=== PATIENT | female | born 1965 | race Caucasian/White ===

== ENCOUNTER 2018-07-08 15:57 | Inpatient (IN) | payer BC ==
[2018-07-08] MEDS ORDERED: Ondansetron 4 MG/2 ML SDV ONE (16:11)
[2018-07-08] MEDS ORDERED: Sodium Chloride 0.9% 1,000 ML IV SCH ×2 (16:40→18:00)
[2018-07-08 16:56] LABS: CHLORIDE,CL 109 mmol/L (98-107); SODIUM,NA 144 mmol/L (136-145)
[2018-07-08] MEDS ORDERED: Ondansetron 4 MG/2 ML SDV IVPUSH ONE (17:00)
[2018-07-08] MEDS ORDERED: Potassium Chloride 20 MEQ Tab.ER PO ONE (18:01)
--- NOTE | 2018-07-08 19:19 | EDM.PDOC ---
ED HPI GENERAL MEDICAL PROBLEM - General Chief Complaint: Abdominal Pain Stated Complaint: nausea & vomiting Time Seen by Provider: 07/08/18 16:00 Source of Information: Reports: Patient History Limitations: Reports: No Limitations - History of Present Illness INITIAL COMMENTS - FREE TEXT/NARRATIVE: Patient is a 53-year-old female who presented to the emergency room not feeling well for the last week patient felt she had nausea vomiting diarrhea about 5 times a day felt dehydrated not eating well nausea and vomiting Onset: Gradual Duration: Day(s): (5), Getting Worse Location: Reports: Abdomen Quality: Reports: Burning (On voiding) Severity: Moderate Improves with: Reports: None Worsens with: Reports: None Context: Reports: Other (Sick) Associated Symptoms: Reports: Fever/Chills, Nausea/Vomiting Lower Back Pain Score (Numeric/FACES): 9 - Related Data Allergies Allergy/AdvReac Type Severity Reaction Status Date / Time No Known Allergies Allergy Verified 08/10/13 12:48 Home Meds: Home Meds Cyanocobalamin (Vitamin B-12) [Vitamin B-12] 1,000 mcg IM Q30D 08/31/13 [History ] Etanercept [Enbrel] 50 mg SQ Q7D 08/31/13 [History] Levothyroxine Sodium [Synthroid] 200 mcg PO ACBRK 08/31/13 [History] Meloxicam [Mobic] 7.5 mg PO BID 08/31/13 [History] traMADol [Ultram] 50 mg PO ONETIME PRN 08/31/13 [History] traMADol [Ultram] 50 mg PO TID 08/31/13 [History] Gabapentin [Neurontin] 300 mg PO DAILY 07/08/18 [History] Gabapentin [Neurontin] 600 mg PO BEDTIME 07/08/18 [History] Methotrexate 1 dose SQ Q7D 07/08/18 [History] Oxybutynin Chloride [Ditropan Xl] 10 mg PO TID 07/08/18 [History] Past Medical History Genitourinary History: Reports: Other (See Below) Other Genitourinary History: overactive bladder Musculoskeletal History: Reports: RA Endocrine/Metabolic History: Reports: Hypothyroidism - Past Surgical History GI Surgical History: Reports: Bariatric Procedure Social & Family History - Tobacco Use Smoking Status *Q: Unknown Ever Smoked ED ROS GENERAL - Review of Systems Review Of Systems: See Below Constitutional: Reports: Weakness, Fatigue, Weight Loss HEENT: Reports: No Symptoms, Other (Throat dry) Respiratory: Reports: No Symptoms Cardiovascular: Reports: No Symptoms Endocrine: Reports: No Symptoms GI/Abdominal: Reports: Diarrhea, Decreased Appetite, Nausea : Reports: Dysuria, Frequency, Hematuria Musculoskeletal: Reports: No Symptoms Skin: Reports: Dryness Neurological: Reports: No Symptoms Psychiatric: Reports: No Symptoms Hematologic/Lymphatic: Reports: No Symptoms Immunologic: Reports: No Symptoms ED EXAM, GENERAL - Physical Exam Exam: See Below Exam Limited By: No Limitations General Appearance: Alert, WD/WN, No Apparent Distress Ears: Normal External Exam, Normal Canal, Hearing Grossly Normal, Normal TMs Nose: Normal Inspection Throat/Mouth: Normal Inspection, Normal Lips, Normal Teeth, Normal Gums, Normal Oropharynx, Normal Voice, No Airway Compromise Head: Atraumatic, Normocephalic Neck: Normal Inspection Respiratory/Chest: No Respiratory Distress Cardiovascular: Normal Peripheral Pulses, Regular Rate, Rhythm, No Edema, No Gallop, No JVD, No Murmur, No Rub GI/Abdominal: Tender, Abnormal Bowel Sounds (Attractive) (Female) Exam: Deferred Back Exam: Decreased Range of Motion Extremities: Limited Range of Motion, Other (History of rheumatoid arthritis) Neurological: Alert, Oriented, CN II-XII Intact, Normal Cognition, Normal Gait, Normal Reflexes, No Motor/Sensory Deficits Psychiatric: Normal Affect, Normal Mood Course - Vital Signs Last Recorded V/S: Last Vital Signs Temp 98.5 F 07/09/18 08:00 Pulse 75 07/09/18 08:00 Resp 16 07/09/18 08:00 BP 104/54 L 07/09/18 08:00 Pulse Ox 98 07/09/18 08:00 - Orders/Labs/Meds Orders: Medication Orders Cyanocobalamin (Vitamin B12) 1,000 mcg IM Q30D [facility] Last Admin: 07/08/18 20:26 Dose: 1,000 mcg Diphenoxylate HCl/Atropine (Lomotil 0.025-2.5 Mg) 1 tab PO BID PRN PRN Reason: Diarrhea Enoxaparin Sodium (Lovenox) 30 mg SUBCUT DAILY [facility] Last Admin: 07/09/18 07:46 Dose: 30 mg Furosemide (Lasix) 40 mg IV NOW ONE Stop: 07/09/18 09:02 Gabapentin (Neurontin) 300 mg PO DAILY [facility] Last Admin: 07/09/18 07:45 Dose: 300 mg Gabapentin (Neurontin) 600 mg PO BEDTIME [facility] Last Admin: 07/08/18 20:21 Dose: 600 mg Piperacillin Sod/Tazobactam (Sod 3.375 gm/ Sodium Chloride) 100 mls @ 200 mls/ hr IV Q6H [facility] Last Admin: 07/09/18 07:42 Dose: 200 mls/hr Admin: 07/09/18 01:23 Dose: 200 mls/hr Admin: 07/08/18 20:16 Dose: 200 mls/hr Potassium Chloride/Dextrose/Sod Cl (D5 1/2 Ns W/ 40 Meq/L Kcl) 1,000 mls @ 100 mls/hr IV ASDIRECTED [facility] Sodium Chloride (Normal Saline) 250 mls @ 100 mls/hr IV ASDIRECTED [facility] Meloxicam (Mobic) 7.5 mg PO BID [facility] Levothyroxine Sodium (200 Mcg) 200 mcg PO ACBRK [facility] Non-Formulary Medication (Oxybutynin Chloride [Ditropan Xl]) 10 mg PO TID [facility] Ondansetron HCl (Zofran) 4 mg IVPUSH Q4H PRN PRN Reason: Nausea Pharmacy Consult (Consult To Pharmacy) 1 each .XX ASDIRECTED [facility] Pharmacy Consult (Consult To Pharmacy) 1 each .XX ASDIRECTED [facility] Sodium Chloride (Saline Flush) 10 ml FLUSH ASDIRECTED PRN PRN Reason: Keep Vein Open Last Admin: 07/08/18 20:15 Dose: 10 ml Temazepam (Restoril) 15 mg PO BEDTIME PRN PRN Reason: Insomnia Tramadol HCl (Ultram) 50 mg PO TID [facility] Last Admin: 07/09/18 07:45 Dose: 50 mg Tramadol HCl (Ultram) 50 mg PO ONETIME PRN PRN Reason: Pain Last Admin: 07/08/18 20:14 Dose: 50 mg Labs: Laboratory Tests 07/08/18 07/08/18 07/08/18 Range/Units 16:30 16:30 18:30 WBC 19.4 H (4.0-10.2) K/uL RBC 3.65 L (3.77-5.09) M/uL Hgb 8.9 L (11.7-15.5) g/dL Hct 28.2 L (34.0-46.0) % MCV 77.3 L D (84.0-98.0) fL MCH 24.4 L (28.2-33.3) pg MCHC 31.6 L (31.7-36.0) g/dL RDW 17.5 H (11.2-14.1) % Plt Count 416 H D (150-350) K/uL Neut % (Auto) 81.9 H (45.0-80.0) % Lymph % (Auto) 9.0 L (10.0-50.0) % [place] % (Auto) 8.5 (2.0-14.0) % Eos % (Auto) 0.5 (0.0-5.0) % Baso % (Auto) 0.1 (0.0-2.0) % Neut # (Auto) 15.91 H (1.40-7.00) K/uL Lymph # (Auto) 1.74 (0.50-3.50) K/uL [place] # (Auto) 1.66 H (0.00-1.00) K/uL Eos # (Auto) 0.10 (0.00-0.50) K/uL Baso # (Auto) 0.02 (0.00-0.20) K/uL Sodium 144 (136-145) mmol/L Potassium 2.8 L* (3.5-5.1) mmol/L Chloride 109 H (98-107) mmol/L Carbon Dioxide 20.2 L (21.0-32.0) mmol/L BUN 32 H (7-18) mg/dL Creatinine 0.88 (0.51-1.17) mg/dL Est Cr Clr Drug Dosing TNP Estimated GFR (MDRD) > 60 mL/min Glucose 186 H (74-106) mg/dL Calcium 8.4 L (8.5-10.1) mg/dL Total Bilirubin 0.5 (0.2-1.0) mg/dL AST 364 H (15-37) U/L ALT 266 H (12-78) U/L Alkaline Phosphatase 283 H (46-116) IU/L Total Protein 7.3 (6.4-8.2) g/dL Albumin 2.0 L (3.4-5.0) g/dL Specimen Type Urinvoid Urine Color Dark yellow Urine Appearance Cloudy Urine pH 6.0 (5.0-9.0) Ur Specific [place] 1.020 (1.005-1.030) Urine Protein 100 H (NEGATIVE) mg/dL Urine Glucose (UA) Negative (NEGATIVE) mg/dL Urine Ketones Negative (NEGATIVE) mg/dL Urine Occult Blood Large H (NEGATIVE) Urine Nitrite Negative (NEGATIVE) Urine Bilirubin Negative (NEGATIVE) Urine Urobilinogen 1.0 (0.2-1.0) E.U./dL Ur Leukocyte Esterase Negative (NEGATIVE) Urine RBC 75-100 H /HPF Urine WBC 50-75 H /HPF Ur Epithelial Cells Few /LPF Urine Bacteria Many H (NONE TO FEW) /HPF Meds: Medications Generic Name Dose Route Start Last Admin Trade Name Freq PRN Reason Stop Dose Admin Cyanocobalamin 1,000 mcg 07/08/18 20:11 07/08/18 20:26 Vitamin B12 IM 1,000 mcg Q30D [facility] Administration Diphenoxylate HCl/Atropine 1 tab 07/08/18 19:41 Lomotil 0.025-2.5 Mg PO BID PRN Diarrhea Enoxaparin Sodium 30 mg 07/09/18 08:00 07/09/18 07:46 Lovenox SUBCUT 30 mg DAILY [facility] Administration Furosemide 40 mg 07/09/18 09:01 Lasix IV 07/09/18 09:02 NOW ONE Gabapentin 300 mg 07/09/18 08:00 07/09/18 07:45 Neurontin PO 300 mg DAILY [facility] Administration Gabapentin 600 mg 07/08/18 20:11 07/08/18 20:21 Neurontin PO 600 mg BEDTIME [facility] Administration Piperacillin Sod/Tazobactam 100 mls @ 200 mls/hr 07/08/18 19:45 07/09/18 07: 42 Sod 3.375 gm/ Sodium Chloride IV 200 mls/hr Q6H [facility] Administration Potassium Chloride/Dextrose/Sod Cl 1,000 mls @ 100 mls/hr 07/09/18 09:15 D5 1/2 Ns W/ 40 Meq/L Kcl IV ASDIRECTED [facility] Sodium Chloride 250 mls @ 100 mls/hr 07/09/18 09:15 Normal Saline IV ASDIRECTED [facility] Meloxicam 7.5 mg 07/09/18 08:27 Mobic PO BID [facility] Levothyroxine Sodium 200 mcg 07/09/18 07:30 200 Mcg PO ACBRK [facility] Non-Formulary Medication 10 mg 07/09/18 08:00 Oxybutynin Chloride [Ditropan Xl] PO TID [facility] Ondansetron HCl 4 mg 07/08/18 21:58 Zofran IVPUSH Q4H PRN Nausea Pharmacy Consult 1 each 07/09/18 09:15 Consult To Pharmacy .XX ASDIRECTED [facility] Pharmacy Consult 1 each 07/09/18 09:30 Consult To Pharmacy .XX ASDIRECTED [facility] Sodium Chloride 10 ml 07/08/18 19:30 07/08/18 20:15 Saline Flush FLUSH 10 ml ASDIRECTED PRN Administration Keep Vein Open Temazepam 15 mg 07/09/18 00:26 Restoril PO BEDTIME PRN Insomnia Tramadol HCl 50 mg 07/09/18 08:00 07/09/18 07:45 Ultram PO 50 mg TID [facility] Administration Tramadol HCl 50 mg 07/08/18 19:48 07/08/18 20:14 Ultram PO 50 mg ONETIME PRN Administration Pain Discontinued Medications Generic Name Dose Route Start Last Admin Trade Name Freq PRN Reason Stop Dose Admin Sodium Chloride 1,000 mls @ 999 mls/hr 07/08/18 18:00 07/08/18 18:16 Normal Saline IV 999 mls/hr ASDIRECTED [facility] Administration Sodium Chloride 1,000 mls @ 999 mls/hr 07/08/18 16:40 07/08/18 16:50 Normal Saline IV 999 mls/hr ASDIRECTED [facility] Administration Potassium Chloride 10 meq/ 50 mls @ 50 mls/hr 07/08/18 19:45 07/09/18 00:03 Premix IV 07/08/18 23:44 50 mls/hr Q1H [facility] Administration Sodium Chloride 1,000 mls @ 150 mls/hr 07/08/18 19:45 07/09/18 04:30 Normal Saline IV 150 mls/hr ASDIRECTED [facility] Administration Non-Formulary Medication 1,000 mcg 07/08/18 20:00 07/08/18 21:51 Cyanocobalamin (Vitamin B-12) [Vitamin B-12] IM Not Given Q30D [facility] Non-Formulary Medication 600 mg 07/08/18 20:00 07/08/18 21:51 Gabapentin PO Not Given BEDTIME [facility] Non-Formulary Medication 7.5 mg 07/09/18 08:00 Meloxicam [Mobic] PO BID [facility] Ondansetron HCl Confirm 07/08/18 16:11 07/08/18 19:10 Zofran Administered 07/08/18 16:12 Not Given Dose 4 mg .ROUTE .STK-MED ONE Ondansetron HCl 4 mg 07/08/18 17:00 07/08/18 16:50 Zofran IVPUSH 07/08/18 17:01 4 mg ONETIME ONE Administration Ondansetron HCl 4 mg 07/08/18 19:45 07/08/18 20:13 Zofran IVPUSH 4 mg Q4H [facility] Administration Potassium Chloride 40 meq 07/08/18 18:01 07/08/18 18:10 Klor-Con M20 PO 07/08/18 18:02 40 meq ONETIME ONE Administration Departure - Departure Time of Disposition: 19:23 Disposition: Admitted As Inpatient 68 Clinical Impression: Gastroenteritis, Diarrhea, Dehydration, Hypokalemia Anemia Qualifiers: Anemia type: iron deficiency Iron deficiency anemia type: unspecified iron deficiency Qualified Code(s): D50.9 - Iron deficiency anemia, unspecified - Discharge Information *PRESCRIPTION DRUG MONITORING PROGRAM REVIEWED*: No *COPY OF PRESCRIPTION DRUG MONITORING REPORT IN PATIENT [place]: No - Problem List & Annotations (1) Dehydration SNOMED Code(s): 13665646 Code(s): E86.0 - DEHYDRATION Status: Acute Current Visit: Yes Annotation/Comment:: IV fluids continued; but dehydration is improving (2) Hypokalemia SNOMED Code(s): 85693691 Code(s): E87.6 - HYPOKALEMIA Status: Acute Current Visit: Yes Annotation/Comment:: Started to replace potassium IV; switched fluids to D5 1/2 normal with 40 (3) Anemia SNOMED Code(s): 447166504 Code(s): D64.9 - ANEMIA, UNSPECIFIED Status: Acute Current Visit: Yes Annotation/Comment:: Hemoglobin on admission was 8.6 and I feel this will go down because we are hydrating her on admit. I will evaluate in the AM to see if she will need any transfusions. 07-09-18 Patient is iron deficient with iron levels at 34. Will transfuse 2 units as patient is symptomatic and then infuse Iron. Pharmacy consult placed for iron infusion. Qualifiers: Anemia type: iron deficiency Iron deficiency anemia type: unspecified iron deficiency Qualified Code(s): D50.9 - Iron deficiency anemia, unspecified (4) UTI (urinary tract infection) SNOMED Code(s): 88581236 Code(s): N39.0 - URINARY TRACT INFECTION, SITE NOT SPECIFIED Status: Acute Current Visit: Yes Annotation/Comment:: on antibiotics; WBCs improving - Cultures ordered Qualifiers: Urinary tract infection type: site unspecified Hematuria presence: with hematuria Qualified Code(s): N39.0 - Urinary tract infection, site not specified; R31.9 - Hematuria, unspecified - Problem List Review Problem List Initiated/Reviewed/Updated: Yes - Assessment/Plan Admission H&P: Please use this note as an admission H&P
[2018-07-08] MEDS ORDERED: Atropine/Diphenoxylate 0.025-2.5 MG Tab PO PRN (19:41)
[2018-07-08] MEDS ORDERED: Ondansetron 4 MG/2 ML SDV IVPUSH SCH (19:45)
[2018-07-08] MEDS ORDERED: Non-Formulary Medication 1 Each (Gabapentin 600 MG) PO SCH (20:00)
[2018-07-08] MEDS ORDERED: Non-Formulary Medication 1 Each (Cyanocobalamin (Vitamin B-12) [Vitamin B-12] 1,000 MCG) IM SCH (20:00)
[2018-07-08] MEDS ORDERED: Cyanocobalamin (Vitamin B12) 1,000 MCG/ML SDV IM SCH (20:11)
[2018-07-08] MEDS: Sodium Chloride 0.9% 1,000 ML IV SCH (20:11)
[2018-07-08] MEDS: traMADol 50 MG Tab PO PRN (20:14)
[2018-07-08] MEDS: Sodium Chloride 0.9% 10 ML Syringe FLUSH PRN (20:15)
[2018-07-08] MEDS: Piperacillin/Tazobactam 3.375 GM in Sodium Chloride 0.9% 100 ML IV SCH (20:16)
[2018-07-08] MEDS: Gabapentin 300 MG Cap PO SCH (20:21)
[2018-07-08] MEDS: Potassium Chloride 10 MEQ in Premix Bag 1 BAG IV SCH ×3 (20:57→23:01)
[2018-07-08] MEDS ORDERED: Diltiazem 25 MG/5 ML SDV IVPUSH ONE (21:49)
[2018-07-08] MEDS ORDERED: Ondansetron 4 MG/2 ML SDV IVPUSH PRN (21:58)
[2018-07-09] MEDS: Potassium Chloride 10 MEQ in Premix Bag 1 BAG IV SCH (00:03)
[2018-07-09] MEDS: Piperacillin/Tazobactam 3.375 GM in Sodium Chloride 0.9% 100 ML IV SCH ×4 (01:23→20:05)
[2018-07-09] MEDS: Sodium Chloride 0.9% 1,000 ML IV SCH (04:30)
[2018-07-09] MEDS ORDERED: Levothyroxine Sodium 200 MCG PO SCH (07:30)
[2018-07-09] MEDS: traMADol 50 MG Tab PO SCH ×3 (07:45→17:29)
[2018-07-09] MEDS: Gabapentin 300 MG Cap PO SCH ×2 (07:45→20:06)
[2018-07-09] MEDS: Enoxaparin 30 MG/0.3 ML Syringe SUBCUT SCH (07:46)
[2018-07-09] MEDS ORDERED: MELOXICAM 7.5 MG PO SCH (08:00)
[2018-07-09] MEDS ORDERED: Non-Formulary Medication 1 Each (Oxybutynin Chloride [Ditropan Xl] 10 MG) PO SCH (08:00)
[2018-07-09 08:37] LABS: SODIUM,NA 148 mmol/L (136-145)
[2018-07-09 08:41] LABS: CHLORIDE,CL 117 mmol/L (98-107)
[2018-07-09] MEDS ORDERED: Furosemide 40 MG/4 ML VIAL IV ONE (09:01)
--- NOTE | 2018-07-09 09:11 | PCM.PN ---
- General Info Date of Service: 07/09/18 - Review of Systems General: Reports: Weakness, Fatigue HEENT: Reports: No Symptoms Pulmonary: Reports: No Symptoms Cardiovascular: Reports: No Symptoms Gastrointestinal: Reports: Nausea, Vomiting Genitourinary: Reports: No Symptoms Musculoskeletal: Reports: No Symptoms Skin: Reports: No Symptoms Neurological: Reports: No Symptoms Psychiatric: Reports: No Symptoms - Patient Data Vitals - Most Recent: Last Vital Signs Temp 98.5 F 07/09/18 08:00 Pulse 75 07/09/18 08:00 Resp 16 07/09/18 08:00 BP 104/54 L 07/09/18 08:00 Pulse Ox 98 07/09/18 08:00 Weight - Most Recent: 155 lb 0.006 oz I&O - Last 24 Hours: Intake & Output 07/08/18 07/09/18 07/09/18 22:59 06:59 14:59 Intake Total 400 100 100 Output Total 300 Balance 400 -200 100 Lab Results Last 24 Hours: Laboratory Results - last 24 hr 07/08/18 07/08/18 07/08/18 Range/Units 16:30 16:30 18:30 WBC 19.4 H (4.0-10.2) K/uL RBC 3.65 L (3.77-5.09) M/uL Hgb 8.9 L (11.7-15.5) g/dL Hct 28.2 L (34.0-46.0) % MCV 77.3 L D (84.0-98.0) fL MCH 24.4 L (28.2-33.3) pg MCHC 31.6 L (31.7-36.0) g/dL RDW 17.5 H (11.2-14.1) % Plt Count 416 H D (150-350) K/uL Neut % (Auto) 81.9 H (45.0-80.0) % Lymph % (Auto) 9.0 L (10.0-50.0) % [place] % (Auto) 8.5 (2.0-14.0) % Eos % (Auto) 0.5 (0.0-5.0) % Baso % (Auto) 0.1 (0.0-2.0) % Neut # (Auto) 15.91 H (1.40-7.00) K/uL Lymph # (Auto) 1.74 (0.50-3.50) K/uL [place] # (Auto) 1.66 H (0.00-1.00) K/uL Eos # (Auto) 0.10 (0.00-0.50) K/uL Baso # (Auto) 0.02 (0.00-0.20) K/uL Sodium 144 (136-145) mmol/L Potassium 2.8 L* (3.5-5.1) mmol/L Chloride 109 H (98-107) mmol/L Carbon Dioxide 20.2 L (21.0-32.0) mmol/L BUN 32 H (7-18) mg/dL Creatinine 0.88 (0.51-1.17) mg/dL Est Cr Clr Drug Dosing TNP Estimated GFR (MDRD) > 60 mL/min Glucose 186 H (74-106) mg/dL Lactic Acid (0.4-2.0) mmol/L Calcium 8.4 L (8.5-10.1) mg/dL Iron (50-175) ug/dL TIBC (250-450) ug/dL % Saturation Ferritin (8-388) ng/mL Total Bilirubin 0.5 (0.2-1.0) mg/dL AST 364 H (15-37) U/L ALT 266 H (12-78) U/L Alkaline Phosphatase 283 H (46-116) IU/L Total Protein 7.3 (6.4-8.2) g/dL Albumin 2.0 L (3.4-5.0) g/dL Folate (8.6-58.9) ng/mL Specimen Type Urinvoid Urine Color Dark yellow Urine Appearance Cloudy Urine pH 6.0 (5.0-9.0) Ur Specific [place] 1.020 (1.005-1.030) Urine Protein 100 H (NEGATIVE) mg/dL Urine Glucose (UA) Negative (NEGATIVE) mg/dL Urine Ketones Negative (NEGATIVE) mg/dL Urine Occult Blood Large H (NEGATIVE) Urine Nitrite Negative (NEGATIVE) Urine Bilirubin Negative (NEGATIVE) Urine Urobilinogen 1.0 (0.2-1.0) E.U./dL Ur Leukocyte Esterase Negative (NEGATIVE) Urine RBC 75-100 H /HPF Urine WBC 50-75 H /HPF Ur Epithelial Cells Few /LPF Urine Bacteria Many H (NONE TO FEW) /HPF 07/08/18 07/09/18 07/09/18 Range/Units 19:10 07:45 07:45 WBC 17.5 H (4.0-10.2) K/uL RBC 2.85 L (3.77-5.09) M/uL Hgb 7.0 L* D (11.7-15.5) g/dL Hct 22.5 L* (34.0-46.0) % MCV 78.9 L (84.0-98.0) fL MCH 24.6 L (28.2-33.3) pg MCHC 31.1 L (31.7-36.0) g/dL RDW 17.2 H (11.2-14.1) % Plt Count 362 H (150-350) K/uL Neut % (Auto) 80.0 (45.0-80.0) % Lymph % (Auto) 10.5 (10.0-50.0) % [place] % (Auto) 8.1 (2.0-14.0) % Eos % (Auto) 1.3 (0.0-5.0) % Baso % (Auto) 0.1 (0.0-2.0) % Neut # (Auto) 13.98 H (1.40-7.00) K/uL Lymph # (Auto) 1.83 (0.50-3.50) K/uL [place] # (Auto) 1.41 H (0.00-1.00) K/uL Eos # (Auto) 0.22 (0.00-0.50) K/uL Baso # (Auto) 0.02 (0.00-0.20) K/uL Sodium 148 H (136-145) mmol/L Potassium 3.1 L (3.5-5.1) mmol/L Chloride 117 H* (98-107) mmol/L Carbon Dioxide 20.9 L (21.0-32.0) mmol/L BUN 20 H (7-18) mg/dL Creatinine 0.86 (0.51-1.17) mg/dL Est Cr Clr Drug Dosing 69.53 Estimated GFR (MDRD) > 60 mL/min Glucose 115 H (74-106) mg/dL Lactic Acid 0.5 (0.4-2.0) mmol/L Calcium 7.7 L (8.5-10.1) mg/dL Iron (50-175) ug/dL TIBC (250-450) ug/dL % Saturation Ferritin (8-388) ng/mL Total Bilirubin (0.2-1.0) mg/dL AST (15-37) U/L ALT (12-78) U/L Alkaline Phosphatase (46-116) IU/L Total Protein (6.4-8.2) g/dL Albumin (3.4-5.0) g/dL Folate (8.6-58.9) ng/mL Specimen Type Urine Color Urine Appearance Urine pH (5.0-9.0) Ur Specific [place] (1.005-1.030) Urine Protein (NEGATIVE) mg/dL Urine Glucose (UA) (NEGATIVE) mg/dL Urine Ketones (NEGATIVE) mg/dL Urine Occult Blood (NEGATIVE) Urine Nitrite (NEGATIVE) Urine Bilirubin (NEGATIVE) Urine Urobilinogen (0.2-1.0) E.U./dL Ur Leukocyte Esterase (NEGATIVE) Urine RBC /HPF Urine WBC /HPF Ur Epithelial Cells /LPF Urine Bacteria (NONE TO FEW) /HPF 07/09/18 07/09/18 Range/Units 07:45 07:45 WBC (4.0-10.2) K/uL RBC (3.77-5.09) M/uL Hgb (11.7-15.5) g/dL Hct (34.0-46.0) % MCV (84.0-98.0) fL MCH (28.2-33.3) pg MCHC (31.7-36.0) g/dL RDW (11.2-14.1) % Plt Count (150-350) K/uL Neut % (Auto) (45.0-80.0) % Lymph % (Auto) (10.0-50.0) % [place] % (Auto) (2.0-14.0) % Eos % (Auto) (0.0-5.0) % Baso % (Auto) (0.0-2.0) % Neut # (Auto) (1.40-7.00) K/uL Lymph # (Auto) (0.50-3.50) K/uL [place] # (Auto) (0.00-1.00) K/uL Eos # (Auto) (0.00-0.50) K/uL Baso # (Auto) (0.00-0.20) K/uL Sodium (136-145) mmol/L Potassium (3.5-5.1) mmol/L Chloride (98-107) mmol/L Carbon Dioxide (21.0-32.0) mmol/L BUN (7-18) mg/dL Creatinine (0.51-1.17) mg/dL Est Cr Clr Drug Dosing Estimated GFR (MDRD) mL/min Glucose (74-106) mg/dL Lactic Acid (0.4-2.0) mmol/L Calcium (8.5-10.1) mg/dL Iron 34 L (50-175) ug/dL TIBC 194 L (250-450) ug/dL % Saturation 17.5 Ferritin 382 (8-388) ng/mL Total Bilirubin (0.2-1.0) mg/dL AST (15-37) U/L ALT (12-78) U/L Alkaline Phosphatase (46-116) IU/L Total Protein (6.4-8.2) g/dL Albumin (3.4-5.0) g/dL Folate 14.1 (8.6-58.9) ng/mL Specimen Type Urine Color Urine Appearance Urine pH (5.0-9.0) Ur Specific [place] (1.005-1.030) Urine Protein (NEGATIVE) mg/dL Urine Glucose (UA) (NEGATIVE) mg/dL Urine Ketones (NEGATIVE) mg/dL Urine Occult Blood (NEGATIVE) Urine Nitrite (NEGATIVE) Urine Bilirubin (NEGATIVE) Urine Urobilinogen (0.2-1.0) E.U./dL Ur Leukocyte Esterase (NEGATIVE) Urine RBC /HPF Urine WBC /HPF Ur Epithelial Cells /LPF Urine Bacteria (NONE TO FEW) /HPF Arian Results Last 24 Hours: Microbiology 07/08/18 21:05 Occult Blood - Final Stool / Feces Med Orders - Current: Current Medications Cyanocobalamin (Vitamin B12) 1,000 mcg IM Q30D [facility] Last Admin: 07/08/18 20:26 Dose: 1,000 mcg Diphenoxylate HCl/Atropine (Lomotil 0.025-2.5 Mg) 1 tab PO BID PRN PRN Reason: Diarrhea Enoxaparin Sodium (Lovenox) 30 mg SUBCUT DAILY [facility] Last Admin: 07/09/18 07:46 Dose: 30 mg Furosemide (Lasix) 40 mg IV NOW ONE Stop: 07/09/18 09:02 Gabapentin (Neurontin) 300 mg PO DAILY [facility] Last Admin: 07/09/18 07:45 Dose: 300 mg Gabapentin (Neurontin) 600 mg PO BEDTIME [facility] Last Admin: 07/08/18 20:21 Dose: 600 mg Piperacillin Sod/Tazobactam (Sod 3.375 gm/ Sodium Chloride) 100 mls @ 200 mls/ hr IV Q6H [facility] Last Admin: 07/09/18 07:42 Dose: 200 mls/hr Potassium Chloride/Dextrose/Sod Cl (D5 1/2 Ns W/ 40 Meq/L Kcl) 1,000 mls @ 100 mls/hr IV ASDIRECTED [facility] Sodium Chloride (Normal Saline) 250 mls @ 100 mls/hr IV ASDIRECTED [facility] Meloxicam (Mobic) 7.5 mg PO BID [facility] Levothyroxine Sodium (200 Mcg) 200 mcg PO ACBRK [facility] Non-Formulary Medication (Oxybutynin Chloride [Ditropan Xl]) 10 mg PO TID [facility] Ondansetron HCl (Zofran) 4 mg IVPUSH Q4H PRN PRN Reason: Nausea Pharmacy Consult (Consult To Pharmacy) 1 each .XX ASDIRECTED [facility] Sodium Chloride (Saline Flush) 10 ml FLUSH ASDIRECTED PRN PRN Reason: Keep Vein Open Last Admin: 07/08/18 20:15 Dose: 10 ml Temazepam (Restoril) 15 mg PO BEDTIME PRN PRN Reason: Insomnia Tramadol HCl (Ultram) 50 mg PO TID [facility] Last Admin: 07/09/18 07:45 Dose: 50 mg Tramadol HCl (Ultram) 50 mg PO ONETIME PRN PRN Reason: Pain Last Admin: 07/08/18 20:14 Dose: 50 mg Discontinued Medications Sodium Chloride (Normal Saline) 1,000 mls @ 999 mls/hr IV ASDIRECTED [facility] Last Admin: 07/08/18 18:16 Dose: 999 mls/hr Sodium Chloride (Normal Saline) 1,000 mls @ 999 mls/hr IV ASDIRECTED [facility] Last Admin: 07/08/18 16:50 Dose: 999 mls/hr Potassium Chloride 10 meq/ (Premix) 50 mls @ 50 mls/hr IV Q1H [facility] Stop: 07/08/18 23:44 Last Admin: 07/09/18 00:03 Dose: 50 mls/hr Sodium Chloride (Normal Saline) 1,000 mls @ 150 mls/hr IV ASDIRECTED [facility] Last Admin: 07/09/18 04:30 Dose: 150 mls/hr Non-Formulary Medication (Cyanocobalamin (Vitamin B-12) [Vitamin B-12]) 1,000 mcg IM Q30D [facility] Last Admin: 07/08/18 21:51 Dose: Not Given Non-Formulary Medication (Gabapentin) 600 mg PO BEDTIME [facility] Last Admin: 07/08/18 21:51 Dose: Not Given Non-Formulary Medication (Meloxicam [Mobic]) 7.5 mg PO BID [facility] Ondansetron HCl (Zofran) Confirm Administered Dose 4 mg .ROUTE .STK-MED ONE Stop: 07/08/18 16:12 Last Admin: 07/08/18 19:10 Dose: Not Given Ondansetron HCl (Zofran) 4 mg IVPUSH ONETIME ONE Stop: 07/08/18 17:01 Last Admin: 07/08/18 16:50 Dose: 4 mg Ondansetron HCl (Zofran) 4 mg IVPUSH Q4H [facility] Last Admin: 07/08/18 20:13 Dose: 4 mg Potassium Chloride (Klor-Con M20) 40 meq PO ONETIME ONE Stop: 07/08/18 18:02 Last Admin: 07/08/18 18:10 Dose: 40 meq - Exam General: Alert, Oriented HEENT: Pupils Equal, Pupils Reactive, EOMI, Mucous Membr. Moist/[place] Neck: Supple Lungs: Clear to Auscultation, Normal Respiratory Effort Cardiovascular: Regular Rate, Regular Rhythm GI/Abdominal Exam: Normal Bowel Sounds, Soft, Non-Tender, No Organomegaly, No Distention, No Abnormal Bruit, No Mass, Pelvis Stable (Female) Exam: Deferred Back Exam: Normal Inspection, Full Range of Motion Extremities: Normal Inspection, Normal Range of Motion, Non-Tender, No Pedal Edema, Normal Capillary Refill Physical Findings Comments:: Hematology- Anemia, Chronic - Patient is Iron Deficient with iron levels 34. Will transfuse 2 units this AM and then infuse Iron. Pharmacy consult placed for iron infusion. - Problem List & Annotations (1) Dehydration SNOMED Code(s): 47386999 Code(s): E86.0 - DEHYDRATION Status: Acute Current Visit: Yes Annotation/Comment:: IV fluids continued; but dehydration is improving (2) Hypokalemia SNOMED Code(s): 21960703 Code(s): E87.6 - HYPOKALEMIA Status: Acute Current Visit: Yes Annotation/Comment:: Started to replace potassium IV; switched fluids to D5 1/2 normal with 40 (3) Anemia SNOMED Code(s): 211602604 Code(s): D64.9 - ANEMIA, UNSPECIFIED Status: Acute Current Visit: Yes Qualifiers: Anemia type: iron deficiency Iron deficiency anemia type: unspecified iron deficiency Qualified Code(s): D50.9 - Iron deficiency anemia, unspecified Annotation/Comment:: Hematology- Anemia, Chronic - Patient is Iron Deficient with iron levels 34. Will transfuse 2 units this AM due to patient being symptomatic and then infuse Iron. Pharmacy consult placed for iron infusion. (4) UTI (urinary tract infection) SNOMED Code(s): 64868784 Code(s): N39.0 - URINARY TRACT INFECTION, SITE NOT SPECIFIED Status: Acute Current Visit: Yes Qualifiers: Urinary tract infection type: site unspecified Hematuria presence: with hematuria Qualified Code(s): N39.0 - Urinary tract infection, site not specified; R31.9 - Hematuria, unspecified Annotation/Comment:: on antibiotics; WBCs improving - Cultures ordered - Problem List Review Problem List Initiated/Reviewed/Updated: Yes - My Orders Last 24 Hours: My Active Orders 07/08/18 19:30 Ambulate [RC] ASDIRECTED Bedrest Bathroom Privileges [RC] ASDIRECTED Bedrest Bedside Commode [RC] ASDIRECTED May Shower [RC] ASDIRECTED Up to Chair [RC] ASDIRECTED Sodium Chloride 0.9% [Saline Flush] 10 ml FLUSH ASDIRECTED PRN Saline Lock Insert [OM.PC] Routine Resuscitation Status Routine 07/08/18 19:31 Patient Status [ADT] Routine Oxygen Therapy [RC] PRN Vital Signs [RC] Q4HR 07/08/18 19:33 Intake and Output [RC] QSHIFT 07/08/18 19:41 Atropine/Diphenoxylate [Lomotil 0.025-2.5 MG] 1 tab PO BID PRN 07/08/18 19:45 Piperacillin/Tazobactam [Zosyn] 3.375 gm Sodium Chloride 0.9% [Normal Saline] 100 ml IV Q6H 07/08/18 19:48 traMADol [Ultram] 50 mg PO ONETIME PRN 07/08/18 20:11 Cyanocobalamin (Vitamin B12) [Vitamin B12] 1,000 mcg IM Q30D Gabapentin [Neurontin] 600 mg PO BEDTIME 07/08/18 21:50 Cardiac Monitoring [RC] Q2HR 07/08/18 21:58 Ondansetron [Zofran] 4 mg IVPUSH Q4H PRN 07/09/18 00:26 Temazepam [Restoril] 15 mg PO BEDTIME PRN 07/09/18 07:30 Levothyroxine Sodium 200 mcg PO ACBRK 07/09/18 07:45 BASIC METABOLIC PANEL,BMP [CHEM] AM VITAMIN B12 [CHEM] Routine 07/09/18 08:00 Enoxaparin [Lovenox] 30 mg SUBCUT DAILY Gabapentin [Neurontin] 300 mg PO DAILY Oxybutynin Chloride [Ditropan Xl] 10 mg PO TID traMADol [Ultram] 50 mg PO TID 07/09/18 08:27 Meloxicam [Mobic] 7.5 mg PO BID 07/09/18 08:58 CULTURE URINE [RM] Routine 07/09/18 09:01 RED BLOOD CELLS LP [BBK] Routine TYPE AND SCREEN [BBK] Routine Furosemide [Lasix] 40 mg IV NOW ONE Transfuse Red Blood Cells [COMM] Routine 07/09/18 09:03 Verify Patient Consent Obtain [RC] ASDIRECTED 07/09/18 09:15 D5 1/2 NS w/ 40 mEq/L KCl 1,000 ml IV ASDIRECTED Pharmacy Consult [Consult to Pharmacy] 1 each .XX ASDIRECTED Sodium Chloride 0.9% @ 100 MLS/HR(250ml) Sodium Chloride 0.9% [Normal Saline] 250 ml IV ASDIRECTED 07/09/18 14:00 CBC WITH AUTO DIFF [HEME] Timed 07/09/18 Breakfast 2 Gram Sodium Diet [DIET]
[2018-07-09] MEDS ORDERED: Sodium Chloride 0.9% 250 ML IV SCH (09:15)
[2018-07-09] MEDS: SYNTHROID 175 MCG PO SCH (11:30)
[2018-07-09] MEDS: Oxybutynin 5 MG Tab.ER PO SCH ×2 (11:49→17:28)
[2018-07-09] MEDS: Sodium Chloride 0.9% 10 ML Syringe FLUSH PRN (20:07)
[2018-07-09] MEDS: D5 1/2 NS w/ 40 mEq/L KCl 1,000 ML IV SCH (20:13)
[2018-07-09] MEDS ORDERED: Aluminum Hydroxide/Magnesium Hydroxide/Simethicone Susp 30 ML Cup PO PRN (20:37)
[2018-07-09] MEDS: Temazepam 15 MG Cap PO PRN (21:08)
[2018-07-10] MEDS: Piperacillin/Tazobactam 3.375 GM in Sodium Chloride 0.9% 100 ML IV SCH ×2 (01:05→07:26)
[2018-07-10] MEDS: D5 1/2 NS w/ 40 mEq/L KCl 1,000 ML IV SCH ×2 (07:12→19:05)
[2018-07-10] MEDS: SYNTHROID 175 MCG PO SCH (07:27)
[2018-07-10] MEDS: Enoxaparin 30 MG/0.3 ML Syringe SUBCUT SCH (07:27)
[2018-07-10] MEDS: traMADol 50 MG Tab PO SCH ×3 (07:28→17:21)
[2018-07-10] MEDS: Oxybutynin 5 MG Tab.ER PO SCH ×3 (07:28→17:21)
[2018-07-10] MEDS: Gabapentin 300 MG Cap PO SCH ×2 (07:28→20:45)
[2018-07-10 08:01] LABS: CHLORIDE,CL 114 mmol/L (98-107); SODIUM,NA 144 mmol/L (136-145)
[2018-07-10] MEDS: Sodium Chloride 0.9% 10 ML Syringe FLUSH PRN (10:20)
[2018-07-10] MEDS: Levofloxacin/Dextrose 5%-Water 500 MG in Premix Bag 1 BAG IV SCH (13:38)
[2018-07-10] MEDS: Potassium Chloride 10 MEQ Tab.ER PO SCH ×2 (13:41→17:21)
--- NOTE | 2018-07-10 13:45 | PCM.PN ---
- General Info Date of Service: 07/10/18 Functional Status: Reports: Tolerating Diet - Review of Systems General: Reports: Weakness, Fatigue HEENT: Reports: No Symptoms Pulmonary: Reports: No Symptoms Cardiovascular: Reports: No Symptoms Gastrointestinal: Reports: No Symptoms Genitourinary: Reports: No Symptoms Musculoskeletal: Reports: No Symptoms Skin: Reports: No Symptoms Neurological: Reports: No Symptoms Psychiatric: Reports: No Symptoms - Patient Data Vitals - Most Recent: Last Vital Signs Temp 98.3 F 07/10/18 12:00 Pulse 80 07/10/18 12:00 Resp 18 07/10/18 12:00 BP 123/69 07/10/18 12:00 Pulse Ox 100 07/10/18 12:00 Weight - Most Recent: 155 lb 0.006 oz I&O - Last 24 Hours: Intake & Output 07/09/18 07/10/18 07/10/18 22:59 06:59 14:59 Intake Total 1296 970 340 Output Total 600 200 Balance 696 970 140 Lab Results Last 24 Hours: Laboratory Results - last 24 hr 07/09/18 07/09/18 07/10/18 Range/Units 07:45 20:30 07:00 WBC 15.7 H 16.1 H (4.0-10.2) K/uL RBC 3.67 L 3.49 L (3.77-5.09) M/uL Hgb 9.7 L D 9.1 L (11.7-15.5) g/dL Hct 30.4 L 29.0 L (34.0-46.0) % MCV 82.8 L D 83.1 L (84.0-98.0) fL MCH 26.4 L 26.1 L (28.2-33.3) pg MCHC 31.9 31.4 L (31.7-36.0) g/dL RDW 18.2 H 18.1 H (11.2-14.1) % Plt Count 396 H 382 H (150-350) K/uL Neut % (Auto) 77.6 78.4 (45.0-80.0) % Lymph % (Auto) 12.9 12.2 (10.0-50.0) % [place] % (Auto) 7.5 7.2 (2.0-14.0) % Eos % (Auto) 1.8 2.0 (0.0-5.0) % Baso % (Auto) 0.2 0.2 (0.0-2.0) % Neut # (Auto) 12.18 H 12.61 H (1.40-7.00) K/uL Lymph # (Auto) 2.03 1.96 (0.50-3.50) K/uL [place] # (Auto) 1.18 H 1.16 H (0.00-1.00) K/uL Eos # (Auto) 0.29 0.33 (0.00-0.50) K/uL Baso # (Auto) 0.03 0.04 (0.00-0.20) K/uL Sodium (136-145) mmol/L Potassium (3.5-5.1) mmol/L Chloride (98-107) mmol/L Carbon Dioxide (21.0-32.0) mmol/L BUN (7-18) mg/dL Creatinine (0.51-1.17) mg/dL Est Cr Clr Drug Dosing mL/min Estimated GFR (MDRD) mL/min Glucose (74-106) mg/dL Calcium (8.5-10.1) mg/dL TSH, Ultra Sensitive (0.358-3.740) mIU/mL Blood Type O POSITIVE Gel Antibody Screen Negative Crossmatch See Detail 07/10/18 Range/Units 07:00 WBC (4.0-10.2) K/uL RBC (3.77-5.09) M/uL Hgb (11.7-15.5) g/dL Hct (34.0-46.0) % MCV (84.0-98.0) fL MCH (28.2-33.3) pg MCHC (31.7-36.0) g/dL RDW (11.2-14.1) % Plt Count (150-350) K/uL Neut % (Auto) (45.0-80.0) % Lymph % (Auto) (10.0-50.0) % [place] % (Auto) (2.0-14.0) % Eos % (Auto) (0.0-5.0) % Baso % (Auto) (0.0-2.0) % Neut # (Auto) (1.40-7.00) K/uL Lymph # (Auto) (0.50-3.50) K/uL [place] # (Auto) (0.00-1.00) K/uL Eos # (Auto) (0.00-0.50) K/uL Baso # (Auto) (0.00-0.20) K/uL Sodium 144 (136-145) mmol/L Potassium 3.5 (3.5-5.1) mmol/L Chloride 114 H (98-107) mmol/L Carbon Dioxide 20.4 L (21.0-32.0) mmol/L BUN 11 (7-18) mg/dL Creatinine 0.80 (0.51-1.17) mg/dL Est Cr Clr Drug Dosing 74.74 mL/min Estimated GFR (MDRD) > 60 mL/min Glucose 144 H (74-106) mg/dL Calcium 7.6 L (8.5-10.1) mg/dL TSH, Ultra Sensitive 1.462 (0.358-3.740) mIU/mL Blood Type Gel Antibody Screen Crossmatch Arian Results Last 24 Hours: Microbiology 07/08/18 18:30 Urine Culture - Final Urine, Clean Catch Escherichia Coli Med Orders - Current: Current Medications Al Hydroxide/Mg Hydroxide (Mag-Al Plus) 30 ml PO Q4H PRN PRN Reason: Heartburn Last Admin: 07/09/18 21:08 Dose: 30 ml Cyanocobalamin (Vitamin B12) 1,000 mcg IM Q30D [facility] Last Admin: 07/08/18 20:26 Dose: 1,000 mcg Diphenoxylate HCl/Atropine (Lomotil 0.025-2.5 Mg) 1 tab PO BID PRN PRN Reason: Diarrhea Enoxaparin Sodium (Lovenox) 30 mg SUBCUT DAILY [facility] Last Admin: 07/10/18 07:27 Dose: 30 mg Gabapentin (Neurontin) 300 mg PO DAILY [facility] Last Admin: 07/10/18 07:28 Dose: 300 mg Gabapentin (Neurontin) 600 mg PO BEDTIME [facility] Last Admin: 07/09/18 20:06 Dose: 600 mg Potassium Chloride/Dextrose/Sod Cl (D5 1/2 Ns W/ 40 Meq/L Kcl) 1,000 mls @ 100 mls/hr IV ASDIRECTED [facility] Last Admin: 07/10/18 07:12 Dose: 100 mls/hr Sodium Chloride (Normal Saline) 250 mls @ 100 mls/hr IV ASDIRECTED [facility] Levofloxacin/Dextrose 500 mg/ (Premix) 100 mls @ 100 mls/hr IV Q24H [facility] Last Admin: 07/10/18 13:38 Dose: 100 mls/hr Synthroid 175mcg 1 each PO DAILY [facility] Last Admin: 07/10/18 07:27 Dose: 1 each Oxybutynin Chloride (Oxybutynin Er) 10 mg PO TID [facility] Last Admin: 07/10/18 11:42 Dose: 10 mg Potassium Chloride (Klor-Con 10) 20 meq PO BIDMEALS [facility] Sodium Chloride (Saline Flush) 10 ml FLUSH ASDIRECTED PRN PRN Reason: Keep Vein Open Last Admin: 07/10/18 10:20 Dose: 10 ml Temazepam (Restoril) 15 mg PO BEDTIME PRN PRN Reason: Insomnia Last Admin: 07/09/18 21:08 Dose: 15 mg Tramadol HCl (Ultram) 50 mg PO TID [facility] Last Admin: 07/10/18 11:43 Dose: 50 mg Tramadol HCl (Ultram) 50 mg PO ONETIME PRN PRN Reason: Pain Last Admin: 07/08/18 20:14 Dose: 50 mg Discontinued Medications Furosemide (Lasix) 40 mg IV NOW ONE Stop: 07/09/18 09:02 Last Admin: 07/09/18 16:14 Dose: Not Given Sodium Chloride (Normal Saline) 1,000 mls @ 999 mls/hr IV ASDIRECTED [facility] Last Admin: 07/08/18 18:16 Dose: 999 mls/hr Sodium Chloride (Normal Saline) 1,000 mls @ 999 mls/hr IV ASDIRECTED [facility] Last Admin: 07/08/18 16:50 Dose: 999 mls/hr Potassium Chloride 10 meq/ (Premix) 50 mls @ 50 mls/hr IV Q1H [facility] Stop: 07/08/18 23:44 Last Admin: 07/09/18 00:03 Dose: 50 mls/hr Sodium Chloride (Normal Saline) 1,000 mls @ 150 mls/hr IV ASDIRECTED [facility] Last Admin: 07/09/18 04:30 Dose: 150 mls/hr Piperacillin Sod/Tazobactam (Sod 3.375 gm/ Sodium Chloride) 100 mls @ 200 mls/ hr IV Q6H [facility] Last Admin: 07/10/18 07:26 Dose: 200 mls/hr Ferumoxytol 510 mg/ Sodium (Chloride) 117 mls @ 400 mls/hr IV ONETIME ONE Stop: 07/10/18 10:17 Last Admin: 07/10/18 10:20 Dose: 400 mls/hr Meloxicam (Mobic) 7.5 mg PO BID [facility] Non-Formulary Medication (Cyanocobalamin (Vitamin B-12) [Vitamin B-12]) 1,000 mcg IM Q30D [facility] Last Admin: 07/08/18 21:51 Dose: Not Given Non-Formulary Medication (Gabapentin) 600 mg PO BEDTIME [facility] Last Admin: 07/08/18 21:51 Dose: Not Given Levothyroxine Sodium (200 Mcg) 200 mcg PO ACBRK [facility] Last Admin: 07/09/18 12:17 Dose: Not Given Non-Formulary Medication (Meloxicam [Mobic]) 7.5 mg PO BID [facility] Last Admin: 07/09/18 12:18 Dose: Not Given Non-Formulary Medication (Oxybutynin Chloride [Ditropan Xl]) 10 mg PO TID [facility] Last Admin: 07/09/18 12:18 Dose: Not Given Ondansetron HCl (Zofran) Confirm Administered Dose 4 mg .ROUTE .STK-MED ONE Stop: 07/08/18 16:12 Last Admin: 07/08/18 19:10 Dose: Not Given Ondansetron HCl (Zofran) 4 mg IVPUSH ONETIME ONE Stop: 07/08/18 17:01 Last Admin: 07/08/18 16:50 Dose: 4 mg Ondansetron HCl (Zofran) 4 mg IVPUSH Q4H [facility] Last Admin: 07/08/18 20:13 Dose: 4 mg Ondansetron HCl (Zofran) 4 mg IVPUSH Q4H PRN PRN Reason: Nausea Pharmacy Consult (Consult To Pharmacy) 1 each .XX ASDIRECTED [facility] Pharmacy Consult (Consult To Pharmacy) 1 each .XX ASDIRECTED [facility] Potassium Chloride (Klor-Con M20) 40 meq PO ONETIME ONE Stop: 07/08/18 18:02 Last Admin: 07/08/18 18:10 Dose: 40 meq - Exam General: Alert, Oriented HEENT: Pupils Equal, Pupils Reactive, EOMI, Mucous Membr. Moist/[place] Neck: Supple Lungs: Clear to Auscultation, Normal Respiratory Effort Cardiovascular: Regular Rate, Regular Rhythm GI/Abdominal Exam: Normal Bowel Sounds, Soft, Non-Tender, No Organomegaly, No Distention, No Abnormal Bruit, No Mass, Pelvis Stable (Female) Exam: Deferred Back Exam: Normal Inspection, Full Range of Motion Extremities: Normal Inspection, Normal Range of Motion, Non-Tender, No Pedal Edema, Normal Capillary Refill Skin: Warm, Dry, Intact Wound/Incisions: Healing Well Neurological: No New Focal Deficit Psy/Mental Status: Alert, Normal Affect, Normal Mood Physical Findings Comments:: Patient doing better week - Problem List & Annotations (1) Dehydration SNOMED Code(s): 49087252 Code(s): E86.0 - DEHYDRATION Status: Acute Current Visit: Yes (2) Hypokalemia SNOMED Code(s): 26503559 Code(s): E87.6 - HYPOKALEMIA Status: Acute Current Visit: Yes Annotation/Comment:: Potassium improved will start oral KCl 20 mEq twice daily by mouth (3) Anemia SNOMED Code(s): 304762891 Code(s): D64.9 - ANEMIA, UNSPECIFIED Status: Acute Current Visit: Yes Qualifiers: Anemia type: iron deficiency Iron deficiency anemia type: inadequate dietary iron intake Qualified Code(s): D50.8 - Other iron deficiency anemias Annotation/Comment:: Hemoglobin is 9.5 today we are stable. (4) UTI (urinary tract infection) SNOMED Code(s): 66747087 Code(s): N39.0 - URINARY TRACT INFECTION, SITE NOT SPECIFIED Status: Acute Current Visit: Yes Qualifiers: Urinary tract infection type: site unspecified Hematuria presence: with hematuria Qualified Code(s): N39.0 - Urinary tract infection, site not specified; R31.9 - Hematuria, unspecified Annotation/Comment:: Cultures obtained there is intermediate resistance to Zosyn we'll switch her Levaquin. - Problem List Review Problem List Initiated/Reviewed/Updated: Yes - My Orders Last 24 Hours: My Active Orders 07/09/18 20:37 Alum Hydrox/Mag Hydrox/Simeth [Mag-Al Plus] 30 ml PO Q4H PRN 07/10/18 13:01 Potassium Chloride [Klor-Con 10] 20 meq PO BIDMEALS 07/10/18 14:00 Levofloxacin/Dextrose 5%-Water [Levaquin in D5W 500 MG/100 ML] 500 mg Premix Bag 1 bag IV Q24H 07/11/18 05:11 BASIC METABOLIC PANEL,BMP [CHEM] Q24H CBC WITH AUTO DIFF [HEME] Q24H 07/12/18 05:11 BASIC METABOLIC PANEL,BMP [CHEM] Q24H CBC WITH AUTO DIFF [HEME] Q24H
[2018-07-10] MEDS ORDERED: traMADol 50 MG Tab PO PRN (16:39)
[2018-07-10] MEDS: traMADol 50 MG Tab PO PRN (16:44)
[2018-07-10] MEDS: Temazepam 15 MG Cap PO PRN (23:45)
[2018-07-11] MEDS: D5 1/2 NS w/ 40 mEq/L KCl 1,000 ML IV SCH ×2 (05:08→17:01)
[2018-07-11 07:43] LABS: CHLORIDE,CL 109 mmol/L (98-107); SODIUM,NA 139 mmol/L (136-145)
[2018-07-11] MEDS: Gabapentin 300 MG Cap PO SCH ×2 (08:23→20:53)
[2018-07-11] MEDS: Oxybutynin 5 MG Tab.ER PO SCH ×3 (08:23→17:13)
[2018-07-11] MEDS: traMADol 50 MG Tab PO SCH ×3 (08:23→17:12)
[2018-07-11] MEDS: Potassium Chloride 10 MEQ Tab.ER PO SCH ×2 (08:23→17:37)
[2018-07-11] MEDS: SYNTHROID 175 MCG PO SCH (08:24)
[2018-07-11] MEDS: Enoxaparin 30 MG/0.3 ML Syringe SUBCUT SCH (08:24)
--- NOTE | 2018-07-11 10:54 | PCM.PN ---
- General Info Date of Service: 07/11/18 Functional Status: Reports: Tolerating Diet, Ambulating - Review of Systems General: Reports: Weakness HEENT: Reports: No Symptoms Pulmonary: Reports: Cough, Hemoptysis Cardiovascular: Reports: No Symptoms Gastrointestinal: Reports: No Symptoms Genitourinary: Reports: No Symptoms Musculoskeletal: Reports: No Symptoms Skin: Reports: No Symptoms Neurological: Reports: No Symptoms - Patient Data Vitals - Most Recent: Last Vital Signs Temp 98.2 F 07/11/18 08:00 Pulse 78 07/11/18 08:00 Resp 16 07/11/18 08:00 BP 118/68 07/11/18 08:00 Pulse Ox 100 07/11/18 08:00 Weight - Most Recent: 155 lb 0.006 oz I&O - Last 24 Hours: Intake & Output 07/10/18 07/11/18 07/11/18 22:59 06:59 14:59 Intake Total 1817 1622 200 Output Total 600 200 Balance 1217 1422 200 Lab Results Last 24 Hours: Laboratory Results - last 24 hr 07/11/18 07/11/18 Range/Units 07:03 07:03 WBC 14.2 H (4.0-10.2) K/uL RBC 3.58 L (3.77-5.09) M/uL Hgb 9.4 L (11.7-15.5) g/dL Hct 30.7 L (34.0-46.0) % MCV 85.8 (84.0-98.0) fL MCH 26.3 L (28.2-33.3) pg MCHC 30.6 L (31.7-36.0) g/dL RDW 18.7 H (11.2-14.1) % Plt Count 420 H (150-350) K/uL Neut % (Auto) 79.4 (45.0-80.0) % Lymph % (Auto) 12.8 (10.0-50.0) % [place] % (Auto) 5.8 (2.0-14.0) % Eos % (Auto) 1.8 (0.0-5.0) % Baso % (Auto) 0.2 (0.0-2.0) % Neut # (Auto) 11.26 H (1.40-7.00) K/uL Lymph # (Auto) 1.81 (0.50-3.50) K/uL [place] # (Auto) 0.83 (0.00-1.00) K/uL Eos # (Auto) 0.26 (0.00-0.50) K/uL Baso # (Auto) 0.03 (0.00-0.20) K/uL Sodium 139 (136-145) mmol/L Potassium 4.6 (3.5-5.1) mmol/L Chloride 109 H (98-107) mmol/L Carbon Dioxide 22.3 (21.0-32.0) mmol/L BUN 5 L (7-18) mg/dL Creatinine 0.70 (0.51-1.17) mg/dL Est Cr Clr Drug Dosing 85.42 mL/min Estimated GFR (MDRD) > 60 mL/min Glucose 104 (74-106) mg/dL Calcium 8.1 L (8.5-10.1) mg/dL [facility]rian Results Last 24 Hours: Microbiology 07/08/18 18:30 Urine Culture - Final Urine, Clean Catch Escherichia Coli Med Orders - Current: Current Medications Al Hydroxide/Mg Hydroxide (Mag-Al Plus) 30 ml PO Q4H PRN PRN Reason: Heartburn Last Admin: 07/09/18 21:08 Dose: 30 ml Cyanocobalamin (Vitamin B12) 1,000 mcg IM Q30D [facility] Last Admin: 07/08/18 20:26 Dose: 1,000 mcg Diphenoxylate HCl/Atropine (Lomotil 0.025-2.5 Mg) 1 tab PO BID PRN PRN Reason: Diarrhea Enoxaparin Sodium (Lovenox) 30 mg SUBCUT DAILY [facility] Last Admin: 07/11/18 08:24 Dose: 30 mg Gabapentin (Neurontin) 300 mg PO DAILY [facility] Last Admin: 07/11/18 08:23 Dose: 300 mg Gabapentin (Neurontin) 600 mg PO BEDTIME [facility] Last Admin: 07/10/18 20:45 Dose: 600 mg Potassium Chloride/Dextrose/Sod Cl (D5 1/2 Ns W/ 40 Meq/L Kcl) 1,000 mls @ 100 mls/hr IV ASDIRECTED [facility] Last Admin: 07/11/18 05:08 Dose: 100 mls/hr Sodium Chloride (Normal Saline) 250 mls @ 100 mls/hr IV ASDIRECTED [facility] Levofloxacin/Dextrose 500 mg/ (Premix) 100 mls @ 100 mls/hr IV Q24H [facility] Last Admin: 07/10/18 13:38 Dose: 100 mls/hr Synthroid 175mcg 1 each PO DAILY [facility] Last Admin: 07/11/18 08:24 Dose: 1 each Oxybutynin Chloride (Oxybutynin Er) 10 mg PO TID [facility] Last Admin: 07/11/18 08:23 Dose: 10 mg Potassium Chloride (Klor-Con 10) 20 meq PO BIDMEALS [facility] Last Admin: 07/11/18 08:23 Dose: 20 meq Sodium Chloride (Saline Flush) 10 ml FLUSH ASDIRECTED PRN PRN Reason: Keep Vein Open Last Admin: 07/10/18 10:20 Dose: 10 ml Temazepam (Restoril) 15 mg PO BEDTIME PRN PRN Reason: Insomnia Last Admin: 07/10/18 23:45 Dose: 15 mg Tramadol HCl (Ultram) 50 mg PO TID [facility] Last Admin: 07/11/18 08:23 Dose: 50 mg Tramadol HCl (Ultram) 50 mg PO DAILY PRN PRN Reason: Pain Discontinued Medications Furosemide (Lasix) 40 mg IV NOW ONE Stop: 07/09/18 09:02 Last Admin: 07/09/18 16:14 Dose: Not Given Sodium Chloride (Normal Saline) 1,000 mls @ 999 mls/hr IV ASDIRECTED [facility] Last Admin: 07/08/18 18:16 Dose: 999 mls/hr Sodium Chloride (Normal Saline) 1,000 mls @ 999 mls/hr IV ASDIRECTED [facility] Last Admin: 07/08/18 16:50 Dose: 999 mls/hr Potassium Chloride 10 meq/ (Premix) 50 mls @ 50 mls/hr IV Q1H [facility] Stop: 07/08/18 23:44 Last Admin: 07/09/18 00:03 Dose: 50 mls/hr Sodium Chloride (Normal Saline) 1,000 mls @ 150 mls/hr IV ASDIRECTED [facility] Last Admin: 07/09/18 04:30 Dose: 150 mls/hr Piperacillin Sod/Tazobactam (Sod 3.375 gm/ Sodium Chloride) 100 mls @ 200 mls/ hr IV Q6H [facility] Last Admin: 07/10/18 07:26 Dose: 200 mls/hr Ferumoxytol 510 mg/ Sodium (Chloride) 117 mls @ 400 mls/hr IV ONETIME ONE Stop: 07/10/18 10:17 Last Admin: 07/10/18 10:20 Dose: 400 mls/hr Meloxicam (Mobic) 7.5 mg PO BID [facility] Non-Formulary Medication (Cyanocobalamin (Vitamin B-12) [Vitamin B-12]) 1,000 mcg IM Q30D [facility] Last Admin: 07/08/18 21:51 Dose: Not Given Non-Formulary Medication (Gabapentin) 600 mg PO BEDTIME [facility] Last Admin: 07/08/18 21:51 Dose: Not Given Levothyroxine Sodium (200 Mcg) 200 mcg PO ACBRK [facility] Last Admin: 07/09/18 12:17 Dose: Not Given Non-Formulary Medication (Meloxicam [Mobic]) 7.5 mg PO BID [facility] Last Admin: 07/09/18 12:18 Dose: Not Given Non-Formulary Medication (Oxybutynin Chloride [Ditropan Xl]) 10 mg PO TID [facility] Last Admin: 07/09/18 12:18 Dose: Not Given Ondansetron HCl (Zofran) Confirm Administered Dose 4 mg .ROUTE .STK-MED ONE Stop: 07/08/18 16:12 Last Admin: 07/08/18 19:10 Dose: Not Given Ondansetron HCl (Zofran) 4 mg IVPUSH ONETIME ONE Stop: 07/08/18 17:01 Last Admin: 07/08/18 16:50 Dose: 4 mg Ondansetron HCl (Zofran) 4 mg IVPUSH Q4H [facility] Last Admin: 07/08/18 20:13 Dose: 4 mg Ondansetron HCl (Zofran) 4 mg IVPUSH Q4H PRN PRN Reason: Nausea Pharmacy Consult (Consult To Pharmacy) 1 each .XX ASDIRECTED [facility] Pharmacy Consult (Consult To Pharmacy) 1 each .XX ASDIRECTED [facility] Potassium Chloride (Klor-Con M20) 40 meq PO ONETIME ONE Stop: 07/08/18 18:02 Last Admin: 07/08/18 18:10 Dose: 40 meq Tramadol HCl (Ultram) 50 mg PO ONETIME PRN PRN Reason: Pain Last Admin: 07/10/18 16:44 Dose: 50 mg - Problem List & Annotations (1) Dehydration SNOMED Code(s): 22107211 Code(s): E86.0 - DEHYDRATION Status: Acute Current Visit: Yes (2) Hypokalemia SNOMED Code(s): 56092567 Code(s): E87.6 - HYPOKALEMIA Status: Acute Current Visit: Yes Annotation/Comment:: Potassium improved will start oral KCl 20 mEq twice daily by mouth (3) Anemia SNOMED Code(s): 656821127 Code(s): D64.9 - ANEMIA, UNSPECIFIED Status: Acute Current Visit: Yes Qualifiers: Anemia type: iron deficiency Iron deficiency anemia type: inadequate dietary iron intake Qualified Code(s): D50.8 - Other iron deficiency anemias Annotation/Comment:: Hemoglobin is 9.5 today we are stable. (4) UTI (urinary tract infection) SNOMED Code(s): 05063801 Code(s): N39.0 - URINARY TRACT INFECTION, SITE NOT SPECIFIED Status: Acute Current Visit: Yes Qualifiers: Urinary tract infection type: site unspecified Hematuria presence: with hematuria Qualified Code(s): N39.0 - Urinary tract infection, site not specified; R31.9 - Hematuria, unspecified Annotation/Comment:: Cultures obtained there is intermittent resistance to Zosyn we'll switch her Levaquin. (5) Hemoptysis SNOMED Code(s): 38534796 Code(s): R04.2 - HEMOPTYSIS Status: Acute Current Visit: Yes Annotation /Comment:: Patient is a 53-year-old who is seen today states that she had hemoptysis for the last 2 days she's coughing up blood I examined her and will proceed with a CT of the chest at this time - Problem List Review Problem List Initiated/Reviewed/Updated: Yes - My Orders Last 24 Hours: My Active Orders 07/10/18 13:01 Potassium Chloride [Klor-Con 10] 20 meq PO BIDMEALS 07/10/18 14:00 Levofloxacin/Dextrose 5%-Water [Levaquin in D5W 500 MG/100 ML] 500 mg Premix Bag 1 bag IV Q24H 07/10/18 16:39 traMADol [Ultram] 50 mg PO DAILY PRN 07/11/18 10:46 Chest w Cont [CT] Routine 07/11/18 11:00 CBC WITH AUTO DIFF [HEME] AM 07/12/18 05:11 BASIC METABOLIC PANEL,BMP [CHEM] Q24H CBC WITH AUTO DIFF [HEME] Q24H 07/12/18 10:47 BASIC METABOLIC PANEL,BMP [CHEM] Stat - Plan Plan:: We will proceed with a CAT scan today after CAT scan revealed we will consider sending her home or tonight or in the morning
[2018-07-11] MEDS ORDERED: Iopamidol 612 MG/ML 100 ML Bottle IVPUSH ONE (11:14)
[2018-07-11] MEDS: Levofloxacin/Dextrose 5%-Water 500 MG in Premix Bag 1 BAG IV SCH (13:43)
[2018-07-12] MEDS: D5 1/2 NS w/ 40 mEq/L KCl 1,000 ML IV SCH (02:27)
[2018-07-12 07:23] LABS: CHLORIDE,CL 108 mmol/L (98-107); SODIUM,NA 138 mmol/L (136-145)
[2018-07-12] MEDS: Gabapentin 300 MG Cap PO SCH ×2 (07:58→20:06)
[2018-07-12] MEDS: traMADol 50 MG Tab PO SCH ×3 (07:59→17:18)
[2018-07-12] MEDS: Potassium Chloride 10 MEQ Tab.ER PO SCH (07:59)
[2018-07-12] MEDS: SYNTHROID 175 MCG PO SCH (07:59)
[2018-07-12] MEDS: Oxybutynin 5 MG Tab.ER PO SCH ×3 (07:59→17:19)
[2018-07-12] MEDS: Enoxaparin 30 MG/0.3 ML Syringe SUBCUT SCH (07:59)
--- NOTE | 2018-07-12 13:49 | PCM.PN ---
- General Info Date of Service: 07/12/18 Functional Status: Reports: Tolerating Diet, Urinating - Review of Systems General: Reports: Fatigue HEENT: Reports: No Symptoms Pulmonary: Reports: Hemoptysis Cardiovascular: Reports: No Symptoms Gastrointestinal: Reports: No Symptoms Genitourinary: Reports: Frequency, Burning, Pain, Urgency, Incontinence, Hematuria Musculoskeletal: Reports: No Symptoms Skin: Reports: No Symptoms Neurological: Reports: No Symptoms Psychiatric: Reports: No Symptoms - Patient Data Vitals - Most Recent: Last Vital Signs Temp 98.1 F 07/12/18 12:00 Pulse 77 07/12/18 12:00 Resp 16 07/12/18 12:00 BP 100/53 L 07/12/18 12:00 Pulse Ox 99 07/12/18 12:00 Weight - Most Recent: 155 lb 0.006 oz I&O - Last 24 Hours: Intake & Output 07/11/18 07/12/18 07/12/18 22:59 06:59 14:59 Intake Total 2345 1148 900 Output Total 1100 1400 Balance 1245 1148 -500 Imaging Impressions - Last 24 Hours: CT of the chest revealed no true source of for bleeding "" hemoptysis" at this time CT of the chest also revealed left hydronephritis which is suspicious for urosepsis urine cultures did reveal Escherichia coli which is sensitive to Levaquin and Rocephin at this time I discussed with infectious disease as Mikhail and will go ahead and start Rocephin I will go ahead and do ultrasound of the kidneys and bladder to see if there is any obstruction and if there is referred to Dr. grijalva and david. Lab Results Last 24 Hours: Laboratory Results - last 24 hr 07/12/18 07/12/18 Range/Units 06:35 06:35 WBC 14.8 H (4.0-10.2) K/uL RBC 3.70 L (3.77-5.09) M/uL Hgb 9.8 L (11.7-15.5) g/dL Hct 31.7 L (34.0-46.0) % MCV 85.7 (84.0-98.0) fL MCH 26.5 L (28.2-33.3) pg MCHC 30.9 L (31.7-36.0) g/dL RDW 18.7 H (11.2-14.1) % Plt Count 415 H (150-350) K/uL Neut % (Auto) 80.2 H (45.0-80.0) % Lymph % (Auto) 12.1 (10.0-50.0) % [place] % (Auto) 6.2 (2.0-14.0) % Eos % (Auto) 1.4 (0.0-5.0) % Baso % (Auto) 0.1 (0.0-2.0) % Neut # (Auto) 11.83 H (1.40-7.00) K/uL Lymph # (Auto) 1.78 (0.50-3.50) K/uL [place] # (Auto) 0.92 (0.00-1.00) K/uL Eos # (Auto) 0.20 (0.00-0.50) K/uL Baso # (Auto) 0.02 (0.00-0.20) K/uL Sodium 138 (136-145) mmol/L Potassium 5.1 (3.5-5.1) mmol/L Chloride 108 H (98-107) mmol/L Carbon Dioxide 22.2 (21.0-32.0) mmol/L BUN 4 L (7-18) mg/dL Creatinine 0.74 (0.51-1.17) mg/dL Est Cr Clr Drug Dosing 80.80 mL/min Estimated GFR (MDRD) > 60 mL/min Glucose 95 (74-106) mg/dL Calcium 7.8 L (8.5-10.1) mg/dL Med Orders - Current: Current Medications Al Hydroxide/Mg Hydroxide (Mag-Al Plus) 30 ml PO Q4H PRN PRN Reason: Heartburn Last Admin: 07/09/18 21:08 Dose: 30 ml Cyanocobalamin (Vitamin B12) 1,000 mcg IM Q30D [facility] Last Admin: 07/08/18 20:26 Dose: 1,000 mcg Diphenoxylate HCl/Atropine (Lomotil 0.025-2.5 Mg) 1 tab PO BID PRN PRN Reason: Diarrhea Enoxaparin Sodium (Lovenox) 30 mg SUBCUT DAILY [facility] Last Admin: 07/12/18 07:59 Dose: 30 mg Gabapentin (Neurontin) 300 mg PO DAILY [facility] Last Admin: 07/12/18 07:58 Dose: 300 mg Gabapentin (Neurontin) 600 mg PO BEDTIME [facility] Last Admin: 07/11/18 20:53 Dose: 600 mg Potassium Chloride/Dextrose/Sod Cl (D5 1/2 Ns W/ 40 Meq/L Kcl) 1,000 mls @ 100 mls/hr IV ASDIRECTED [facility] Last Admin: 07/12/18 02:27 Dose: 100 mls/hr Sodium Chloride (Normal Saline) 250 mls @ 100 mls/hr IV ASDIRECTED [facility] Levofloxacin/Dextrose 500 mg/ (Premix) 100 mls @ 100 mls/hr IV Q24H [facility] Last Admin: 07/11/18 13:43 Dose: 100 mls/hr Synthroid 175mcg 1 each PO DAILY [facility] Last Admin: 07/12/18 07:59 Dose: 1 each Oxybutynin Chloride (Oxybutynin Er) 10 mg PO TID [facility] Last Admin: 07/12/18 11:38 Dose: Not Given Potassium Chloride (Klor-Con 10) 20 meq PO BIDMEALS [facility] Last Admin: 07/12/18 07:59 Dose: 20 meq Sodium Chloride (Saline Flush) 10 ml FLUSH ASDIRECTED PRN PRN Reason: Keep Vein Open Last Admin: 07/10/18 10:20 Dose: 10 ml Temazepam (Restoril) 15 mg PO BEDTIME PRN PRN Reason: Insomnia Last Admin: 07/10/18 23:45 Dose: 15 mg Tramadol HCl (Ultram) 50 mg PO TID [facility] Last Admin: 07/12/18 11:37 Dose: 50 mg Tramadol HCl (Ultram) 50 mg PO DAILY PRN PRN Reason: Pain Discontinued Medications Furosemide (Lasix) 40 mg IV NOW ONE Stop: 07/09/18 09:02 Last Admin: 07/09/18 16:14 Dose: Not Given Sodium Chloride (Normal Saline) 1,000 mls @ 999 mls/hr IV ASDIRECTED [facility] Last Admin: 07/08/18 18:16 Dose: 999 mls/hr Sodium Chloride (Normal Saline) 1,000 mls @ 999 mls/hr IV ASDIRECTED [facility] Last Admin: 07/08/18 16:50 Dose: 999 mls/hr Potassium Chloride 10 meq/ (Premix) 50 mls @ 50 mls/hr IV Q1H [facility] Stop: 07/08/18 23:44 Last Admin: 07/09/18 00:03 Dose: 50 mls/hr Sodium Chloride (Normal Saline) 1,000 mls @ 150 mls/hr IV ASDIRECTED [facility] Last Admin: 07/09/18 04:30 Dose: 150 mls/hr Piperacillin Sod/Tazobactam (Sod 3.375 gm/ Sodium Chloride) 100 mls @ 200 mls/ hr IV Q6H [facility] Last Admin: 07/10/18 07:26 Dose: 200 mls/hr Ferumoxytol 510 mg/ Sodium (Chloride) 117 mls @ 400 mls/hr IV ONETIME ONE Stop: 07/10/18 10:17 Last Admin: 07/10/18 10:20 Dose: 400 mls/hr Iopamidol (Isovue-300 (61%)) 100 ml IVPUSH ONETIME ONE Stop: 07/11/18 11:15 Last Admin: 07/11/18 11:47 Dose: 100 ml Meloxicam (Mobic) 7.5 mg PO BID [facility] Non-Formulary Medication (Cyanocobalamin (Vitamin B-12) [Vitamin B-12]) 1,000 mcg IM Q30D [facility] Last Admin: 07/08/18 21:51 Dose: Not Given Non-Formulary Medication (Gabapentin) 600 mg PO BEDTIME [facility] Last Admin: 07/08/18 21:51 Dose: Not Given Levothyroxine Sodium (200 Mcg) 200 mcg PO ACBRK [facility] Last Admin: 07/09/18 12:17 Dose: Not Given Non-Formulary Medication (Meloxicam [Mobic]) 7.5 mg PO BID [facility] Last Admin: 07/09/18 12:18 Dose: Not Given Non-Formulary Medication (Oxybutynin Chloride [Ditropan Xl]) 10 mg PO TID [facility] Last Admin: 07/09/18 12:18 Dose: Not Given Ondansetron HCl (Zofran) Confirm Administered Dose 4 mg .ROUTE .STK-MED ONE Stop: 07/08/18 16:12 Last Admin: 07/08/18 19:10 Dose: Not Given Ondansetron HCl (Zofran) 4 mg IVPUSH ONETIME ONE Stop: 07/08/18 17:01 Last Admin: 07/08/18 16:50 Dose: 4 mg Ondansetron HCl (Zofran) 4 mg IVPUSH Q4H [facility] Last Admin: 07/08/18 20:13 Dose: 4 mg Ondansetron HCl (Zofran) 4 mg IVPUSH Q4H PRN PRN Reason: Nausea Pharmacy Consult (Consult To Pharmacy) 1 each .XX ASDIRECTED [facility] Pharmacy Consult (Consult To Pharmacy) 1 each .XX ASDIRECTED [facility] Potassium Chloride (Klor-Con M20) 40 meq PO ONETIME ONE Stop: 07/08/18 18:02 Last Admin: 07/08/18 18:10 Dose: 40 meq Tramadol HCl (Ultram) 50 mg PO ONETIME PRN PRN Reason: Pain Last Admin: 07/10/18 16:44 Dose: 50 mg - Exam General: Alert, Oriented HEENT: Pupils Equal, Pupils Reactive, EOMI, Mucous Membr. Moist/[place] Neck: Supple Lungs: Clear to Auscultation, Normal Respiratory Effort Cardiovascular: Regular Rate, Regular Rhythm GI/Abdominal Exam: Normal Bowel Sounds, Soft, Non-Tender, No Organomegaly, No Distention, No Abnormal Bruit, No Mass, Pelvis Stable (Female) Exam: Deferred Back Exam: Normal Inspection, Full Range of Motion Extremities: Normal Inspection, Normal Range of Motion, Non-Tender, No Pedal Edema, Normal Capillary Refill - Problem List & Annotations (1) Dehydration SNOMED Code(s): 02718596 Code(s): E86.0 - DEHYDRATION Status: Acute Current Visit: Yes (2) Hypokalemia SNOMED Code(s): 01353328 Code(s): E87.6 - HYPOKALEMIA Status: Acute Current Visit: Yes Annotation/Comment:: Potassium improved will start oral KCl 20 mEq twice daily by mouth 07/12/18 will continue on current plan (3) Anemia SNOMED Code(s): 241533065 Code(s): D64.9 - ANEMIA, UNSPECIFIED Status: Acute Current Visit: Yes Qualifiers: Anemia type: iron deficiency Iron deficiency anemia type: inadequate dietary iron intake Qualified Code(s): D50.8 - Other iron deficiency anemias Annotation/Comment:: Hemoglobin is 9.5 today we are stable. (4) UTI (urinary tract infection) SNOMED Code(s): 97579957 Code(s): N39.0 - URINARY TRACT INFECTION, SITE NOT SPECIFIED Status: Acute Current Visit: Yes Qualifiers: Urinary tract infection type: site unspecified Hematuria presence: with hematuria Qualified Code(s): N39.0 - Urinary tract infection, site not specified; R31.9 - Hematuria, unspecified Annotation/Comment:: Cultures obtained there is intermediate resistance to Zosyn we'll switch her Levaquin. (5) Hemoptysis SNOMED Code(s): 33324522 Code(s): R04.2 - HEMOPTYSIS Status: Acute Current Visit: Yes Annotation /Comment:: Patient is a 53-year-old who is seen today states that she had hemoptysis for the last 2 days she's coughing up blood I examined her and will proceed with a CT of the chest at this time (6) Sepsis after obstetrical procedure SNOMED Code(s): 74285500, 25468222 Code(s): O86.04 - SEPSIS FOLLOWING AN OBSTETRICAL PROCEDURE Status: Acute Current Visit: Yes (7) Sepsis SNOMED Code(s): 77585814 Code(s): A41.9 - SEPSIS, UNSPECIFIED ORGANISM Status: Acute Current Visit : Yes Annotation/Comment:: At this time I have concerns with the left-sided hydronephrosis I don't know if this is obstructed or partial obstruction and the fact that she has nephritis on the left side I will go ahead and schedule her for an ultrasound in the morning and started on a second antibiotic Rocephin. - Problem List Review Problem List Initiated/Reviewed/Updated: Yes - My Orders Last 24 Hours: My Active Orders 07/12/18 08:00 Vital Signs [RC] QID - Plan Plan:: At this time CT revealed a small 2.6 mm nodule it does not appear that this is the cause of her hemoptysis but an incidental finding of left side I don't nephritis is concerning as possible cause of urosepsis and is if not relieved can be cause of complication with non-resolving urosepsis. I will start her on a second antibiotic and will probably need to follow-up with Dr. [place] [facility] in the morning
[2018-07-12] MEDS: Levofloxacin/Dextrose 5%-Water 500 MG in Premix Bag 1 BAG IV SCH (14:06)
[2018-07-12] MEDS: cefTRIAXone 2 GM in Sodium Chloride 0.9% 100 ML IV SCH (15:16)
[2018-07-13 07:23] LABS: CHLORIDE,CL 106 mmol/L (98-107); SODIUM,NA 139 mmol/L (136-145)
[2018-07-13] MEDS: Enoxaparin 30 MG/0.3 ML Syringe SUBCUT SCH (07:23)
[2018-07-13] MEDS: SYNTHROID 175 MCG PO SCH (07:24)
[2018-07-13] MEDS: Gabapentin 300 MG Cap PO SCH (07:24)
[2018-07-13] MEDS: Oxybutynin 5 MG Tab.ER PO SCH ×2 (07:25→11:38)
[2018-07-13] MEDS: traMADol 50 MG Tab PO SCH ×2 (07:25→11:37)
[2018-07-13] MEDS: Sodium Chloride 0.9% 10 ML Syringe FLUSH PRN (10:08)
[2018-07-13] MEDS: cefTRIAXone 2 GM in Sodium Chloride 0.9% 100 ML IV SCH (13:00)
[2018-07-13] MEDS: Levofloxacin/Dextrose 5%-Water 500 MG in Premix Bag 1 BAG IV SCH (14:07)
--- NOTE | 2018-07-13 15:28 | PCM.DCSUM1 ---
Discharge Summary - Hospital Course Free Text/Narrative:: Patient was admitted with urosepsis and anemia and dehydration and generalized weakness. After hydration, patient was transfused 2 units then infused with iron which helped correct her anemia. This also helped with her weakness. Antibiotics were given and a second antibiotic was started secondary to her urosepsis. Patient has been doing better. Will send home to self care today. Diagnosis: Stroke: No - Discharge Data Discharge Date: 07/13/18 Discharge Disposition: Home, Self-Care 01 Condition: Good - Discharge Diagnosis/Problem(s) (1) Dehydration SNOMED Code(s): 59915346 ICD Code: E86.0 - DEHYDRATION Status: Resolved Current Visit: Yes (2) Hypokalemia SNOMED Code(s): 29397083 ICD Code: E87.6 - HYPOKALEMIA Status: Resolved Current Visit: Yes Problem Details: Potassium improved will start oral KCl 20 mEq twice daily by mouth 07-13-18 Oral potassium is going well for patient (3) Anemia SNOMED Code(s): 832493363 ICD Code: D64.9 - ANEMIA, UNSPECIFIED Status: Resolved Current Visit: Yes Problem Details: Stable Qualifiers: Anemia type: iron deficiency Iron deficiency anemia type: inadequate dietary iron intake Qualified Code(s): D50.8 - Other iron deficiency anemias (4) UTI (urinary tract infection) SNOMED Code(s): 64661366 ICD Code: N39.0 - URINARY TRACT INFECTION, SITE NOT SPECIFIED Status: Acute Current Visit: Yes Problem Details: Will send patient home on oral antibiotics Qualifiers: Urinary tract infection type: site unspecified Hematuria presence: with hematuria Qualified Code(s): N39.0 - Urinary tract infection, site not specified; R31.9 - Hematuria, unspecified - Patient Instructions Diet: Usual Diet as Tolerated Activity: As Tolerated Driving: May Drive Today Notify Provider of: Fever, Increased Pain, Nausea and/or Vomiting - Discharge Plan *PRESCRIPTION DRUG MONITORING PROGRAM REVIEWED*: No *COPY OF PRESCRIPTION DRUG MONITORING REPORT IN PATIENT [place]: No Prescriptions/Med Rec: Cefprozil [Cefzil] 500 mg PO DAILY #5 tablet Levofloxacin [Levaquin] 750 mg PO DAILY #5 tablet Home Medications: Home Meds Cyanocobalamin (Vitamin B-12) [Vitamin B-12] 1,000 mcg IM Q30D 08/31/13 [History ] Etanercept [Enbrel] 50 mg SQ Q7D 08/31/13 [History] Gabapentin [Neurontin] 300 mg PO DAILY 07/08/18 [History] Gabapentin [Neurontin] 600 mg PO BEDTIME 07/08/18 [History] Oxybutynin Chloride [Ditropan Xl] 10 mg PO TID 07/08/18 [History] Acetaminophen [Pain Relief Extra Strength] 1,000 mg PO QID PRN 07/09/18 [History ] Cyclobenzaprine [Flexeril] 10 mg PO TID PRN 07/09/18 [History] Famciclovir 500 mg PO TID PRN 07/09/18 [History] Ibuprofen 800 mg PO QID PRN 07/09/18 [History] Levothyroxine Sodium [Synthroid] 175 mcg PO ACBREAKFAST 07/09/18 [History] Methotrexate Sodium/PF [Methotrexate 25 mg/ml Vial] 50 mg IJ Q7D 07/09/18 [ History] traMADol HCl [Tramadol HCl] 50 mg PO Q4H PRN 07/09/18 [History] traMADol [Ultram] 100 mg PO Q4H PRN 07/09/18 [History] Cefprozil [Cefzil] 500 mg PO DAILY #5 tablet 07/13/18 [Rx] Levofloxacin [Levaquin] 750 mg PO DAILY #5 tablet 07/13/18 [Rx] Patient Handouts: Piperacillin; Tazobactam injection, Viral Gastroenteritis, Adult, [id number], Hypokalemia, Urinary Tract Infection, Adult, Potassium chloride injection, Dehydration, Adult Forms: ED Department Discharge Referrals: Maddison Cabrera, PHONE TRIAGE SPECIALIST [Primary Care Provider] - - Discharge Summary/Plan Comment DC Time >30 min.: No - General Info Date of Service: 07/13/18 - Review of Systems General: Reports: Weakness (improving ) HEENT: Reports: No Symptoms Pulmonary: Reports: No Symptoms Cardiovascular: Reports: No Symptoms Gastrointestinal: Reports: Diarrhea Genitourinary: Reports: Burning, Other (patient also complaining of itching in vaginal area. Will give her a dose of diflucan before she leaves. ) Musculoskeletal: Reports: No Symptoms Skin: Reports: No Symptoms Neurological: Reports: No Symptoms Psychiatric: Reports: No Symptoms - Patient Data Vitals - Most Recent: Last Vital Signs Temp 98.2 F 07/13/18 11:10 Pulse 70 07/13/18 14:20 Resp 16 07/13/18 14:20 BP 91/59 L 07/13/18 14:20 Pulse Ox 96 07/13/18 14:20 Weight - Most Recent: 155 lb 0.006 oz I&O - Last 24 hours: Intake & Output 07/13/18 07/13/18 07/13/18 06:59 14:59 22:59 Intake Total 180 Output Total 600 900 Balance -600 -720 Lab Results - Last 24 hrs: Laboratory Results - last 24 hr 07/13/18 07/13/18 Range/Units 06:55 06:55 WBC 11.8 H (4.0-10.2) K/uL RBC 3.72 L (3.77-5.09) M/uL Hgb 9.7 L (11.7-15.5) g/dL Hct 32.0 L (34.0-46.0) % MCV 86.0 (84.0-98.0) fL MCH 26.1 L (28.2-33.3) pg MCHC 30.3 L (31.7-36.0) g/dL RDW 18.9 H (11.2-14.1) % Plt Count 440 H (150-350) K/uL Neut % (Auto) 77.6 (45.0-80.0) % Lymph % (Auto) 13.9 (10.0-50.0) % Catron % (Auto) 6.9 (2.0-14.0) % Eos % (Auto) 1.3 (0.0-5.0) % Baso % (Auto) 0.3 (0.0-2.0) % Neut # (Auto) 9.17 H (1.40-7.00) K/uL Lymph # (Auto) 1.64 (0.50-3.50) K/uL Catron # (Auto) 0.82 (0.00-1.00) K/uL Eos # (Auto) 0.15 (0.00-0.50) K/uL Baso # (Auto) 0.03 (0.00-0.20) K/uL Sodium 139 (136-145) mmol/L Potassium 4.6 (3.5-5.1) mmol/L Chloride 106 (98-107) mmol/L Carbon Dioxide 25.0 (21.0-32.0) mmol/L BUN 5 L (7-18) mg/dL Creatinine 0.67 (0.51-1.17) mg/dL Est Cr Clr Drug Dosing 89.24 mL/min Estimated GFR (MDRD) > 60 mL/min Glucose 80 (74-106) mg/dL Calcium 7.9 L (8.5-10.1) mg/dL Med Orders - Current: Current Medications Al Hydroxide/Mg Hydroxide (Mag-Al Plus) 30 ml PO Q4H PRN PRN Reason: Heartburn Last Admin: 07/09/18 21:08 Dose: 30 ml Cyanocobalamin (Vitamin B12) 1,000 mcg IM Q30D [facility] Last Admin: 07/08/18 20:26 Dose: 1,000 mcg Diphenoxylate HCl/Atropine (Lomotil 0.025-2.5 Mg) 1 tab PO BID PRN PRN Reason: Diarrhea Enoxaparin Sodium (Lovenox) 30 mg SUBCUT DAILY [facility] Last Admin: 07/13/18 07:23 Dose: 30 mg Gabapentin (Neurontin) 300 mg PO DAILY [facility] Last Admin: 07/13/18 07:24 Dose: 300 mg Gabapentin (Neurontin) 600 mg PO BEDTIME [facility] Last Admin: 07/12/18 20:06 Dose: 600 mg Levofloxacin/Dextrose 500 mg/ (Premix) 100 mls @ 100 mls/hr IV Q24H [facility] Last Admin: 07/13/18 14:07 Dose: 100 mls/hr Ceftriaxone Sodium 2 gm/ (Sodium Chloride) 100 mls @ 100 mls/hr IV Q24H [facility] Last Admin: 07/13/18 13:00 Dose: 100 mls/hr Synthroid 175mcg 1 each PO DAILY [facility] Last Admin: 07/13/18 07:24 Dose: 1 each Oxybutynin Chloride (Oxybutynin Er) 10 mg PO TID [facility] Last Admin: 07/13/18 11:38 Dose: Not Given Sodium Chloride (Saline Flush) 10 ml FLUSH ASDIRECTED PRN PRN Reason: Keep Vein Open Last Admin: 07/13/18 10:08 Dose: 10 ml Temazepam (Restoril) 15 mg PO BEDTIME PRN PRN Reason: Insomnia Last Admin: 07/10/18 23:45 Dose: 15 mg Tramadol HCl (Ultram) 50 mg PO TID [facility] Last Admin: 07/13/18 11:37 Dose: 50 mg Tramadol HCl (Ultram) 50 mg PO DAILY PRN PRN Reason: Pain Discontinued Medications Furosemide (Lasix) 40 mg IV NOW ONE Stop: 07/09/18 09:02 Last Admin: 07/09/18 16:14 Dose: Not Given Sodium Chloride (Normal Saline) 1,000 mls @ 999 mls/hr IV ASDIRECTED [facility] Last Admin: 07/08/18 18:16 Dose: 999 mls/hr Sodium Chloride (Normal Saline) 1,000 mls @ 999 mls/hr IV ASDIRECTED [facility] Last Admin: 07/08/18 16:50 Dose: 999 mls/hr Potassium Chloride 10 meq/ (Premix) 50 mls @ 50 mls/hr IV Q1H [facility] Stop: 07/08/18 23:44 Last Admin: 07/09/18 00:03 Dose: 50 mls/hr Sodium Chloride (Normal Saline) 1,000 mls @ 150 mls/hr IV ASDIRECTED [facility] Last Admin: 07/09/18 04:30 Dose: 150 mls/hr Piperacillin Sod/Tazobactam (Sod 3.375 gm/ Sodium Chloride) 100 mls @ 200 mls/ hr IV Q6H [facility] Last Admin: 07/10/18 07:26 Dose: 200 mls/hr Potassium Chloride/Dextrose/Sod Cl (D5 1/2 Ns W/ 40 Meq/L Kcl) 1,000 mls @ 100 mls/hr IV ASDIRECTED [facility] Last Admin: 07/12/18 02:27 Dose: 100 mls/hr Sodium Chloride (Normal Saline) 250 mls @ 100 mls/hr IV ASDIRECTED [facility] Ferumoxytol 510 mg/ Sodium (Chloride) 117 mls @ 400 mls/hr IV ONETIME ONE Stop: 07/10/18 10:17 Last Admin: 07/10/18 10:20 Dose: 400 mls/hr Ferumoxytol 510 mg/ Sodium (Chloride) 117 mls @ 400 mls/hr IV ONETIME ONE Stop: 07/13/18 10:17 Last Admin: 07/13/18 10:08 Dose: 400 mls/hr Iopamidol (Isovue-300 (61%)) 100 ml IVPUSH ONETIME ONE Stop: 07/11/18 11:15 Last Admin: 07/11/18 11:47 Dose: 100 ml Meloxicam (Mobic) 7.5 mg PO BID [facility] Non-Formulary Medication (Cyanocobalamin (Vitamin B-12) [Vitamin B-12]) 1,000 mcg IM Q30D [facility] Last Admin: 07/08/18 21:51 Dose: Not Given Non-Formulary Medication (Gabapentin) 600 mg PO BEDTIME [facility] Last Admin: 07/08/18 21:51 Dose: Not Given Levothyroxine Sodium (200 Mcg) 200 mcg PO ACBRK [facility] Last Admin: 07/09/18 12:17 Dose: Not Given Non-Formulary Medication (Meloxicam [Mobic]) 7.5 mg PO BID [facility] Last Admin: 07/09/18 12:18 Dose: Not Given Non-Formulary Medication (Oxybutynin Chloride [Ditropan Xl]) 10 mg PO TID [facility] Last Admin: 07/09/18 12:18 Dose: Not Given Ondansetron HCl (Zofran) Confirm Administered Dose 4 mg .ROUTE .STK-MED ONE Stop: 07/08/18 16:12 Last Admin: 07/08/18 19:10 Dose: Not Given Ondansetron HCl (Zofran) 4 mg IVPUSH ONETIME ONE Stop: 07/08/18 17:01 Last Admin: 07/08/18 16:50 Dose: 4 mg Ondansetron HCl (Zofran) 4 mg IVPUSH Q4H [facility] Last Admin: 07/08/18 20:13 Dose: 4 mg Ondansetron HCl (Zofran) 4 mg IVPUSH Q4H PRN PRN Reason: Nausea Pharmacy Consult (Consult To Pharmacy) 1 each .XX ASDIRECTED [facility] Pharmacy Consult (Consult To Pharmacy) 1 each .XX ASDIRECTED [facility] Potassium Chloride (Klor-Con M20) 40 meq PO ONETIME ONE Stop: 07/08/18 18:02 Last Admin: 07/08/18 18:10 Dose: 40 meq Potassium Chloride (Klor-Con 10) 20 meq PO BIDMEALS [facility] Last Admin: 07/12/18 07:59 Dose: 20 meq Tramadol HCl (Ultram) 50 mg PO ONETIME PRN PRN Reason: Pain Last Admin: 07/10/18 16:44 Dose: 50 mg - Exam General: Reports: Alert, Oriented HEENT: Reports: Pupils Equal, Pupils Reactive, EOMI, Mucous Membr. Moist/[place] Neck: Reports: Supple Lungs: Reports: Clear to Auscultation, Normal Respiratory Effort Cardiovascular: Reports: Regular Rate, Regular Rhythm GI/Abdominal Exam: Normal Bowel Sounds, Soft, Non-Tender, No Organomegaly, No Distention, No Abnormal Bruit, No Mass, Pelvis Stable (Female) Exam: Deferred, Other (patient complaining of itchiness in vaginal area. "Feels like a yeast infection from antibiotics" ) Rectal (Female) Exam: Deferred Back Exam: Reports: Normal Inspection, Full Range of Motion Extremities: Normal Inspection, Normal Range of Motion, Non-Tender, No Pedal Edema, Normal Capillary Refill Skin: Reports: Warm, Dry, Intact Neurological: Reports: No New Focal Deficit Psy/Mental Status: Reports: Alert, Normal Affect, Normal Mood
[2018-07-13] MEDS ORDERED: Fluconazole 100 MG Tab PO ONE (15:33)
== END 2018-07-13 16:30 | disposition home or self-care (01) | DRG 720 ==
LOC: LL.ED 15:57 → LL.MS 19:10
PROVIDERS: ADMIT Family Medicine; ATTEND Family Medicine
PROC: 30233N1 Transfusion of Nonautologous Red Blood Cells into Peripheral Vein, Percutaneous Approach (ICD-10-PCS; principal; 2018-07-09)
DX: A41.9 Sepsis, unspecified organism (principal); N39.0 Urinary tract infection, site not specified; E03.9 Hypothyroidism, unspecified; M06.9 Rheumatoid arthritis, unspecified; E86.0 Dehydration; E87.6 Hypokalemia; D50.8 Other iron deficiency anemias; R31.9 Hematuria, unspecified; R04.2 Hemoptysis; Z79.899 Other long term (current) drug therapy
CPT/HCPCS: 36415; 36430; 71260; 76770; 80048; 80053; 81001; 82270; 82607; 82728; 82746; 83540; 83550; 83605; 84443; 85025; 86850; 86900; 86901; 86920; 86922; 87086; 87088; 87186; 96361; 96374; 99284-25; A4217; A9270-GY; J0696; J1650; J1956; J2405; J2543; J3420; J3480; J7030; J7050; P9016; Q0138; Q9967